=== PATIENT | female | born 1965 | race Two or more races ===

== ENCOUNTER 2024-10-03 12:15 | Day surgery (SDC) | payer MEDICAID, SELFPAY ==
[2024-10-02 13:49] VITALS: BMI 30.8
[2024-10-03] VITALS (10 sets, daily range): BP systolic 96–138; BP diastolic 61–92; PULSE 68–80; RESP 13–19; TEMP 36.2–36.6; O2SAT 91–98; BMI 30.2
[2024-10-03] MEDS: fentaNYL CIT INJ 50 mCg/ML AMP 2ML (ASD USE ONLY) IVP (13:40)
[2024-10-03] MEDS: RINGERS LACTATED 1000 ML 1,000 ML 100 ML IV (13:40)
[2024-10-03] MEDS: MIDAZOLAM INJ 1 MG/ML VIAL 2 ML (ASD USE ONLY) 2 MG IVP (13:56)
== END 2024-10-03 14:53 | disposition home or self-care (01) ==
PROVIDERS: PCP Family Medicine; Referring Provider Surgery; Visit Provider Surgery
PROC: 0DBE8ZX Excision of Large Intestine, Via Natural or Artificial Opening Endoscopic, Diagnostic (ICD-10-PCS; CPT 45380; principal; 2024-10-03 13:45)
DX: Z12.11 Encounter for screening for malignant neoplasm of colon (principal)
CPT/HCPCS: 45378; 81025; A4217; J2250; J3010; J7120